=== PATIENT | male | born 1985 | race Caucasian/White ===

== ENCOUNTER 2017-02-24 04:52 | Emergency (ER) | payer OTHER ==
[~2017-02-24] VITALS: Ht 180.3 cm; Wt 100.0 kg
[~2017-02-24 04:52] MED LIST: BACT800T5 PO
[2017-02-24 04:55] VITALS: BP 158/90; PULSE 82; RESP 18; TEMP 97.5; O2SAT 100
[2017-02-24] MEDS ORDERED: BUSP5TAB PO (05:03)
[2017-02-24 05:05] VITALS: O2SAT 99
--- NOTE | 2017-02-24 05:11 | PD ---
HPI Chief Complaint: Anxiety Time Seen by Provider: 05:06 Travel History International Travel<30 days: No Contact w/Intl Traveler<30days: No Traveled to known affect area: No History of Present Illness HPI 31-year-old male presents to the emergency department by EMS transport from home for complaint of anxiety. Patient complains of feeling short of breath and chest discomfort. Chest discomfort was right sided. Patient states noted chest discomfort after taking deep breaths. Patient denies any history of clotting disorder hypertension dyslipidemia diabetes or family history premature onset heart disease recent long distance travel protracted bed rest surgical procedure or injury. Patient feels well at this time. Patient states he took BuSpar 2 doses. Patient has history of anxiety disorder. Patient decided that he wanted to be checked out so presents now. Patient admits to marijuana use tonight. [facility]LY [facility] Past Medical History Narrative Medical Anxiety, leg surgery, tobacco use marijuana use; nursing notes reviewed Anxiety: Yes Diminished Hearing: No Tetanus Vaccination: > 5 Years Influenza Vaccination: No Social History Alcohol Use: No Tobacco Use: Yes (3-4 cigarettes per day) Substance Use: Yes ("Marijuana daily") Allergies-Medications (Allergen,Severity, Reaction): Coded Allergies: No Known Allergies (Unverified , 02/24/17) Reported Meds & Prescriptions Reported Meds & Active Scripts Active Reported Buspirone (Buspirone HCl) 5 Mg Tab 5 Mg PO BID Review of Systems Except as stated in HPI: all other systems reviewed are Neg General / Constitutional: No: Fever, Chills HENT: No: Congestion Cardiovascular: Positive: Chest Pain or Discomfort, Palpitations, Tachycardia, No: Diaphoresis Respiratory: Positive: Shortness of Breath, No: Orthopnea, Hemoptysis, Night Sweats, Pleuritic Pain Gastrointestinal: No: Nausea, Vomiting, Abdominal Pain, Constipation Genitourinary: No: Urgency, Frequency, Dysuria, Decreased Urinary Output Musculoskeletal: No: Myalgias, Arthralgias Skin: No Rash Neurologic: No: Weakness Psychiatric: Positive: Anxiety, No: Depression, Suicidal Ideations Endocrine: No: Heat Intolerance Hematologic/Lymphatic: No: Easy Bruising Physical Exam Narrative GENERAL: Well-developed well-nourished male in no acute distress no respiratory distress SKIN: Warm and dry. HEAD: Normocephalic. EYES: No scleral icterus. No injection or drainage. NECK: Supple, trachea midline. No JVD or lymphadenopathy. CARDIOVASCULAR: Regular rate and rhythm without murmurs, gallops, or rubs. RESPIRATORY: Breath sounds equal bilaterally. No accessory muscle use. GASTROINTESTINAL: Abdomen soft, non-tender, nondistended. MUSCULOSKELETAL: No cyanosis, or edema. BACK: Nontender without obvious deformity. No CVA tenderness. Data Data Last Documented VS Vital Signs Date Time Temp Pulse Resp B/P Pulse Ox O2 Delivery O2 Flow Rate FiO2 02/24/17 07:02 84 18 154/92 100 Room Air 02/24/17 04:55 97.5 Orders Electrocardiogram (02/24/17 05:06) Basic Metabolic Panel (Bmp) (02/24/17 05:06) B-Type Natriuretic Peptide (02/24/17 05:06) Ckmb (Isoenzyme) Profile (02/24/17 05:06) Complete Blood Count With Diff (02/24/17 05:06) Magnesium (Mg) (02/24/17 05:06) Prothrombin Time / Inr (Pt) (02/24/17 05:06) Act Partial Throm Time (Ptt) (02/24/17 05:06) Troponin I (02/24/17 05:06) Chest, Single Ap (02/24/17 05:06) Ecg Monitoring (02/24/17 05:06) Bilateral Bp Monitoring (02/24/17 05:06) Iv Access Insert/Monitor (02/24/17 05:06) Oximetry (02/24/17 05:06) Oxygen Administration (02/24/17 05:06) Sodium Chloride 0.9% Flush (Ns Flush) (02/24/17 05:15) Drug Screen, Random Urine (02/24/17 05:06) CKMB (02/24/17 05:25) CKMB% (02/24/17 05:25) D-Dimer (02/24/17 05:25) Labs Laboratory Tests Test 02/24/17 02/24/17 05:25 06:10 White Blood Count 9.6 TH/MM3 Red Blood Count 4.81 MIL/MM3 Hemoglobin 14.3 GM/DL Hematocrit 42.9 % Mean Corpuscular Volume 89.0 FL Mean Corpuscular Hemoglobin 29.8 PG Mean Corpuscular Hemoglobin 33.4 % Concent Red Cell Distribution Width 13.7 % Platelet Count 229 TH/MM3 Mean Platelet Volume 8.0 FL Neutrophils (%) (Auto) 57.9 % Lymphocytes (%) (Auto) 32.4 % Monocytes (%) (Auto) 6.5 % Eosinophils (%) (Auto) 1.2 % Basophils (%) (Auto) 2.0 % Neutrophils # (Auto) 5.6 TH/MM3 Lymphocytes # (Auto) 3.1 TH/MM3 Monocytes # (Auto) 0.6 TH/MM3 Eosinophils # (Auto) 0.1 TH/MM3 Basophils # (Auto) 0.2 TH/MM3 CBC Comment DIFF FINAL Differential Comment Prothrombin Time 10.5 SEC Prothromb Time International 1.0 RATIO Ratio Activated Partial 26.8 SEC Thromboplast Time D-Dimer Quantitative (PE/DVT) LESS THAN 0.19 MG/L FEU Sodium Level 140 MEQ/L Potassium Level 3.9 MEQ/L Chloride Level 105 MEQ/L Carbon Dioxide Level 25.9 MEQ/L Anion Gap 9 MEQ/L Blood Urea Nitrogen 14 MG/DL Creatinine 1.20 MG/DL Estimat Glomerular Filtration 71 ML/MIN Rate Random Glucose 129 MG/DL Calcium Level 9.0 MG/DL Magnesium Level 2.3 MG/DL Total Creatine Kinase 356 U/L Creatine Kinase MB 2.7 NG/ML Creatine Kinase MB % 0.8 % Troponin I LESS THAN 0.02 NG/ML B-Type Natriuretic Peptide LESS THAN 2 PG/ML Urine Opiates Screen NEG Urine Barbiturates Screen NEG Urine Amphetamines Screen NEG Urine Benzodiazepines Screen NEG Urine Cocaine Screen NEG Urine Cannabinoids Screen POS MDM Medical Decision Making Medical Screen Exam Complete: Yes Emergency Medical Condition: Yes Medical Record Reviewed: Yes Interpretation(s) EKG: Normal sinus rhythm rate 75 global J-point elevation without reciprocal T- wave changes for ischemia consistent with early repolarization Last Impressions Chest X-Ray 02/24/17 0506 Signed Impressions: Service Date/Time: February 05:21 - CONCLUSION: No evidence of acute cardiopulmonary disease. Robbie Herrera MD Vital Signs Date Time Temp Pulse Resp B/P Pulse Ox O2 Delivery O2 Flow Rate FiO2 02/24/17 05:15 76 18 152/84 99 Room Air 140/89 02/24/17 05:05 99 Room Air 02/24/17 05:05 99 Room Air 02/24/17 04:55 97.5 82 18 158/90 100 CBC & BMP Diagram 02/24/17 05:25 Troponin I: Less than 0.02, not elevated CK total: 356: Elevated; CK-MB percent 0.8%, not elevated BNP: 2, not elevated Coagulation studies: Within normal limits D-dimer: 0.19, not elevated Differential Diagnosis Chest pain, atypical chest pain, ACS, diabetes, dehydration, arrhythmia, electrolyte disturbance, PE, pneumothorax, pneumonia, anxiety Narrative Course Patient placed on breakfast hostess vital signs and normal range IV access obtained specimens collected and sent for resulting EKG ordered Patient resting comfortably aware of imaging results and lab results Patient voicing no further complaints or concerns no further anxiety and no shortness of breath or chest pain. Patient is aware of need for close follow-up with his primary care provider and to take his medication as prescribed for his anxiety. Diagnosis Primary Impression: Atypical chest pain Additional Impression: H/O anxiety disorder Referrals: Primary Care Physician call for appointment Patient Instructions: General Instructions Additional Instructions: Follow-up with your primary care provider Take medications as prescribed Return to the emergency department for a concerns or change condition No work times one day Take daily aspirin 81 mg Med/Other Pt SpecificInfo: No Change to Meds Disposition: 01 DISCHARGE HOME Condition: Stable Janet Patel MD Feb 24, 2017 05:11
[2017-02-24 05:15] VITALS: BP_SYST 140; BP_SYST 152; BP_DIAS 84; BP_DIAS 89; PULSE 76; RESP 18; O2SAT 99
[2017-02-24] MEDS ORDERED: SODIUM CHLORIDE 0.9% FLUSH 10 ML FLUSH IVF PRN (05:15)
[2017-02-24 05:36] LABS: AUTOMATED NEUTROPHIL # 5.6 TH/MM3 (1.8-7.7); BASOPHIL # 0.2 TH/MM3 (0-0.2); EOSINOPHIL # 0.1 TH/MM3 (0-0.4); EOSINOPHIL % 1.2 % (0.0-4.0); HEMATOCRIT 42.9 % (39.0-51.0); HEMO FLAGS DIFF FINAL; LYMPH % 32.4 % (9.0-44.0); LYMPHOCYTE # 3.1 TH/MM3 (1.0-4.8); MEAN CORPUSCULAR HEMOGLOBIN 29.8 PG (27.0-34.0); MEAN CORPUSCULAR HGB CONC 33.4 % (32.0-36.0); MONO % 6.5 % (0.0-8.0); NEUT % 57.9 % (16.0-70.0); PLATELET COUNT 229 TH/MM3 (150-450); RED BLOOD COUNT 4.81 MIL/MM3 (4.50-5.90); RED CELL DISTRIBUTION WIDTH 13.7 % (11.6-17.2); WHITE BLOOD COUNT 9.6 TH/MM3 (4.0-11.0)
--- NOTE | 2017-02-24 05:40 | RADRPT ---
EXAM DATE/TIME: 02/24/2017 05:21 [place] COMPARISON: No previous studies available for comparison. INDICATIONS : Chest pain. MEDICAL HISTORY : None. SURGICAL HISTORY : None. ENCOUNTER: Initial ACUITY: 1 day PAIN SCORE: 5/10 LOCATION: Bilateral chest FINDINGS: A single view of the chest demonstrates the lungs to be symmetrically aerated without evidence of mas s, infiltrate or effusion. The cardiomediastinal contours are unremarkable. Osseous structures are intact. CONCLUSION: No evidence of acute cardiopulmonary disease. Robbie Herrera MD on February 24, 2017 at 5:39 Board Certified Radiologist. This report was verified electronically.
[2017-02-24 05:48] LABS: CHLORIDE 105 MEQ/L (98-107); POTASSIUM 3.9 MEQ/L (3.5-5.1); SODIUM (NA) 140 MEQ/L (136-145)
[2017-02-24 05:50] LABS: APTT (PATIENT) 26.8 SEC (24.3-30.1); PROTHROMBIN TIME - PATIENT 10.5 SEC (9.8-11.6)
[2017-02-24 05:51] LABS: ANION GAP 9 MEQ/L (5-15); BICARBONATE 25.9 MEQ/L (21.0-32.0); BLOOD UREA NITROGEN 14 MG/DL (7-18); MAGNESIUM 2.3 MG/DL (1.5-2.5)
[2017-02-24 05:55] LABS: GLOMERULAR FILTRATION RATE 71 ML/MIN (>89)
[2017-02-24 05:58] LABS: CREATINE KINASE 356 U/L (39-308)
[2017-02-24 06:00] VITALS: BP 146/83; PULSE 72; RESP 18; O2SAT 99
[2017-02-24 06:10] LABS: CKMB 2.7 NG/ML (0.5-3.6)
[2017-02-24 06:27] LABS: AMPHETAMINE, URINE NEG (NEG); BARBITURATES, URINE NEG (NEG)
[2017-02-24 06:28] LABS: COCAINE, URINE NEG (NEG)
[2017-02-24 06:30] VITALS: BP 153/82; PULSE 72; RESP 18; O2SAT 99
[2017-02-24 07:02] VITALS: BP 154/92; PULSE 84; RESP 18; O2SAT 100
--- NOTE | 2017-02-24 14:33 | EKG ---
Date Performed: 02/24/2017 Time Performed: 05:14:08 PTAGE: 31 years EKG: Sinus rhythm ST ELEVATION, PROBABLY EARLY REPOLARIZATION NONSPECIFIC ST & T-WAVE ABNORMALITY DIFFUSE ST ELEVATION WITH NO PRIOR TRACING, PERICARDITIS AND POSSIBLY MYOCARDIAL ISCHEMIA SHOULD BE CONSIDERED AND EXCLUD ED. BORDERLINE ECG NO PREVIOUS TRACING DOCTOR: Namita Cook Interpretating Date/Time 02/24/2017 14:31:52
== END 2017-02-24 07:42 | disposition home or self-care (01) ==
LOC: PHED 04:52
DX: R07.89 Other chest pain (principal); F41.9 Anxiety disorder, unspecified; R06.02 Shortness of breath; F12.90 Cannabis use, unspecified, uncomplicated; F17.210 Nicotine dependence, cigarettes, uncomplicated
CPT/HCPCS: 71010; 80048; 80307; 82550; 82552; 83735; 83880; 84484; 85025; 85379; 85610; 85730; 93005; 99285